=== PATIENT | female | born 1965 | race Caucasian/White ===

== ENCOUNTER 2024-02-21 10:45 | Outpatient (RCR) | payer BC, SELFPAY | END 2024-03-20 09:46 | disposition home or self-care (01) | PROVIDERS: PCP Physician Assistant Medical; Visit Provider Physician Assistant Medical | DX: M62.838 Other muscle spasm (principal); M43.6 Torticollis; Z51.89 Encounter for other specified aftercare | CPT/HCPCS: 97110; 97140; 97161 ==